=== PATIENT | female | born 1990 | race Caucasian/White ===

== ENCOUNTER 2021-08-09 01:24 | Emergency (ER) | payer OTHER ==
[~2021-08-09] VITALS: Ht 172.7 cm; Wt 59.0 kg
[~2021-08-09 01:24] MED LIST: PHEN95TA15 PO
--- NOTE | 2021-08-09 02:46 | NUR ---
31 y/o female with multiple complaints. Breast abcess s/p breast augmentation & Right ankle pain. No other issues present. Denies CP, SOB, diaphoresis, fever. A&Ox4. Ambulatory w/ steady gait.
--- NOTE | 2021-08-09 02:47 | NUR ---
Xray at bedside
[2021-08-09 03:46] VITALS: BP 124/87
--- NOTE | 2021-08-09 03:46 | NUR ---
Patient discharged to home in stable condition. Written and verbal after care instructions given. Patient verbalizes understanding of instructions. Stressed follow up or return to ER for worsening s/s.
== END 2021-08-09 03:46 | disposition home or self-care (01) ==
LOC: ER 01:31
DX: N60.81 Other benign mammary dysplasias of right breast (principal); S93.401A Sprain of unspecified ligament of right ankle, initial encounter; W18.40XA Slipping, tripping and stumbling without falling, unspecified, initial encounter; Y92.89 Other specified places as the place of occurrence of the external cause; Z41.1 Encounter for cosmetic surgery
CPT/HCPCS: 73610; A4663